=== PATIENT | male | born 1965 | race Caucasian/White ===

== ENCOUNTER 2024-10-25 12:28 | Emergency (ER) | payer MEDICAID ==
[~2024-10-25] VITALS: Ht 172.7 cm; Wt 85.0 kg
[2024-10-25 12:34] VITALS: BP 114/66; PULSE 94; RESP 18; TEMP 99.8; O2SAT 96
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
[2024-10-25] MEDS: LIDOcaine 1% W/epiNEPHrine 1:100,000 20ml vial IJ ONE (13:45)
[2024-10-25] MEDS: TETanus/Pertussis (Acell)/Diphther VAC/PF (Tdap-Adult) 0.5ml syringe IMVAC ONE (14:40)
[2024-10-25] MEDS: LIDOCAINE 1%/EPI 1:100,000 inj. 10 ML multi-dose vial ONE (15:12)
[2024-10-25] MEDS ORDERED: CEPH-585 PO (15:31)
== END 2024-10-25 15:43 | disposition home or self-care (01) ==
LOC: ER 12:29
DX: S01.111A Laceration without foreign body of right eyelid and periocular area, initial encounter (principal); Z88.5 Allergy status to narcotic agent; X58.XXXA Exposure to other specified factors, initial encounter; Y93.89 Activity, other specified; Y92.89 Other specified places as the place of occurrence of the external cause; Y99.8 Other external cause status
CPT/HCPCS: 12011; 99283; J7030; A6449